=== PATIENT | female | born 1985 | race Caucasian/White ===

== ENCOUNTER 2021-03-25 21:20 | Emergency (ER) | payer MEDICAID ==
--- NOTE | 2021-03-25 22:35 | EDM.PDOCBH ---
ED HPI GENERAL MEDICAL PROBLEM - General Chief Complaint: Drug or Alcohol Abuse Stated Complaint: EVAL Time Seen by Provider: 03/25/21 22:32 Source of Information: Reports: Patient, Family, RN Notes Reviewed History Limitations: Reports: Intoxication - History of Present Illness INITIAL COMMENTS - FREE TEXT/NARRATIVE: 35-year-old female presents emergency department today requesting evaluation for [facility]. Requesting Covid test, urine drug screen and alcohol level. She last used alcohol today no other complaints - Related Data Allergies Allergy/AdvReac Type Severity Reaction Status Date / Time amoxicillin Allergy Hives Verified 03/25/21 22:17 Home Meds: Home Meds NK [No Known Home Meds] 03/25/21 [History] Past Medical History - Past Surgical History GI Surgical History: Reports: Hernia Repair/Other Social & Family History - Tobacco Use Tobacco Use Status *Q: Current Every Day Tobacco User Years of Tobacco use: 19 Packs/Tins Daily: 1 - Recreational Drug Use Recreational Drug Type: Reports: Methamphetamine ED ROS GENERAL - Review of Systems Review Of Systems: See Below Constitutional: Reports: No Symptoms Respiratory: Reports: No Symptoms Cardiovascular: Reports: No Symptoms GI/Abdominal: Reports: No Symptoms ED EXAM, BEHAVIORAL HEALTH - Physical Exam Exam: See Below Exam Limited By: Intoxication General Appearance: Alert, No Apparent Distress Respiratory/Chest: No Respiratory Distress, Lungs Clear, Normal Breath Sounds, No Accessory Muscle Use, Chest Non-Tender Cardiovascular: No Murmur, Tachycardia COURSE, BEHAVIORAL HEALTH COMP - Course Vital Signs: Last Vital Signs Temp 96.8 F L 03/25/21 22:23 Pulse 128 H 03/25/21 22:23 Resp 14 03/25/21 22:23 BP 124/84 03/25/21 22:23 Pulse Ox 96 03/25/21 22:23 Orders, Labs, Meds: Laboratory Tests 03/25/21 03/25/21 03/25/21 Range/Units 22:34 22:42 22:52 Urine Opiates Screen Negative (NEGATIVE) Ur Oxycodone Screen Negative (NEGATIVE) Urine Methadone Screen Negative (NEGATIVE) Ur Propoxyphene Screen Negative (NEGATIVE) Ur Barbiturates Screen Negative (NEGATIVE) Ur Tricyclics Screen Negative (NEGATIVE) Ur Phencyclidine Scrn Negative (NEGATIVE) Ur Amphetamine Screen Presumptive positive H (NEGATIVE) U Methamphetamines Scrn Presumptive positive H (NEGATIVE) Urine MDMA Screen Negative (NEGATIVE) U Benzodiazepines Scrn Presumptive positive H (NEGATIVE) U Cocaine Metab Screen Negative (NEGATIVE) U Marijuana (THC) Screen Negative (NEGATIVE) Ethyl Alcohol 222 mg/dL SARS CoV-2 RNA Rapid FORREST Negative Departure - Departure Time of Disposition: 23:41 Disposition: DC/Tfer to Inpt Rehab Fac 62 Condition: Fair Clinical Impression: ETOH abuse - Discharge Information Referrals: PCP,None [Primary Care Provider] - Forms: ED Department Discharge Additional Instructions: Please report to [facility] facility for further treatment and evaluation Sepsis Event Note (ED) - Evaluation Sepsis Screening Result: No Definite Risk - Focused Exam Vital Signs: Vital Signs Temp Pulse Resp BP Pulse Ox 03/25/21 22:23 96.8 F L 128 H 14 124/84 96 - Assessment/Plan Plan: Assessment Acuity = acute Site and laterality = alcohol intoxication abuse Etiology = EtOH Manifestations = none Location of injury = Home Lab values = alcohol is 222, urine drug screen positive for methamphetamine and benzodiazepine, Covid is negative Plan She is of average risk for detoxification discharged to [facility] This note was dictated using [employer] voice recognition software please call with any questions on syntax or grammar.
== END 2021-03-26 00:46 ==
LOC: JP.ED 21:20
DX: F10.10 Alcohol abuse, uncomplicated (principal); Z88.0 Allergy status to penicillin; Z72.0 Tobacco use; Y90.7 Blood alcohol level of 200-239 mg/100 ml; Z20.822 Contact with and (suspected) exposure to COVID-19
CPT/HCPCS: 36415; 80305-QW; 80307; 99284; U0002